=== PATIENT | male | born 1960 | race African-American/Black ===

== ENCOUNTER 2017-12-22 12:51 | Emergency (ER) | payer SELFPAY ==
[~2017-12-22] VITALS: Ht 177.8 cm; Wt 108.9 kg
[2017-12-22 12:51] VITALS: BP 105/77
[2017-12-22] MEDS ORDERED: IBUPROFEN 600 MG TABLET PO ONE (14:02)
[2017-12-22] MEDS ORDERED: DIAZEPAM 5 MG TABLET ONE (14:02)
[2017-12-22] MEDS: IBUPROFEN 600 MG TABLET PO ONE (14:07)
[2017-12-22] MEDS: DIAZEPAM 5 MG TABLET PO ONE (14:07)
== END 2017-12-22 14:12 | disposition home or self-care (01) ==
LOC: ER 12:54
DX: S13.9XXA Sprain of joints and ligaments of unspecified parts of neck, initial encounter (principal); M54.5 Low back pain; R51 Headache; I10 Essential (primary) hypertension; V43.52XA Car driver injured in collision with other type car in traffic accident, initial encounter; Y93.89 Activity, other specified; Y92.410 Unspecified street and highway as the place of occurrence of the external cause; Y99.8 Other external cause status
CPT/HCPCS: 70450-TC; 71045-TC; 72100-TC; A4606; Z7610